=== PATIENT | male | born 1955 | race Caucasian/White ===

== ENCOUNTER 2016-06-11 11:14 | Inpatient (IN) | payer BC, SELFPAY ==
--- NOTE | ~2016-06-11 | IDS ---
Interim Discharge Summary [facility] [address] [place]. [address] NAME: CHELSEY GIORDANO : 59 STATUS : ADM IN [facility]#: [id number] AGE: 60 ADM/REG DATE : 06/11/16 MR#: [id number] REPORT SERV DATE: 06/14/16 DICTATED BY: DATE: REPORT STATUS : Draft TRANSCRIBED BY: MODL DATE: 06/14/16 ADMISSION DATE: 06/11/2016 DISCHARGE DATE: The patient is admitted to the [facility] Hospitalist [facility]. CONSULTANTS: Include Podiatry, Dr. Taylor. CURRENT DIAGNOSES: 1. Right great toe osteomyelitis and gangrene-status post phalanx debridement and resection on 06/11/[address] Taylor. Wound cultures positive for Pseudomonas, methicillin-sensitive staphylococcus aureus, Strep viridans. 2. Uncontrolled diabetes mellitus type 2-hemoglobin A1c 9.7. On oral agents at admission, now requiring insulin. 3. Severe peripheral neuropathy due to diabetes. 4. Peripheral arterial disease. 5. Hypertension-with blood pressure medication titrations underway. 6. Reported history of alcohol abuse-the patient denies. 7. Acute kidney injury, present at admission-resolved. IMAGING: Includes, 1. Plain films of bilateral feet showing bilateral foreign body suspected. No plain film evidence of osteomyelitis. Plantar heel spur on the right. 2. Postoperative films on 06/11/2016 of the right foot shows the patient is status post amputation of the first toe at the level of the mid phalanx. No postoperative changes identified. PERTINENT LABS: Sodium at admission 132, with a glucose of 424, creatinine has ranged from 1.18 to 0.7. Liver enzymes normal. Hemoglobin A1c 9.7. Initial white blood cell count 10.3, presently 9.5. Hemoglobin values between 10.4 and 11.3. Platelets normal. Blood cultures x2 negative. Wound culture positive for MSSA, fluoroquinolone susceptible Pseudomonas, and Strep viridans. PROCEDURES: Include a partial amputation and debridement of the distal and proximal right great great toe on 06/11/[address] Taylor. BRIEF HISTORY: For full details, please see the previously dictated history of present illness by Dr. Kush Giron. This is a 60-year-old white male with diabetes. He noticed redness, swelling, and nail odor for one day preceding admission as well as uncontrolled hyperglycemia. He presented to the emergency department for evaluation where x-ray of the foot revealed a possible foreign body in the distal phalanx of the right great toe. No pulses were palpable. He was admitted to the Hospitalist Service with evidence of right distal toe gangrene, odor, possible osteomyelitis on x-ray, with an emergent Podiatry consultation. Blood sugars were found to be in excess of 400 in the emergency department. HOSPITAL COURSE: The patient was admitted to [address] [place] [address] following urgent partial amputation and Interim Discharge Summary [address] [place]. [address] NAME: CHELSEY GIORDANO : 59 STATUS : ADM IN [facility]#: [id number] AGE: 60 ADM/REG DATE : 06/11/16 MR#: [id number] REPORT SERV DATE: 06/14/16 DICTATED BY: DATE: REPORT STATUS : Draft TRANSCRIBED BY: MODL DATE: 06/14/16 debridement of the right great toe for gangrene and possible osteomyelitis. Portions of the distal phalanx and proximal phalanx were resected and pathology results are currently pending in order for Dr. Taylor to determine plans for additional debridement versus delayed closure. Surgical cultures today are growing MSSA, Strep viridans, and fluoroquinolones susceptible Pseudomonas. Blood cultures have remained negative. The patient was initiated on vancomycin and meropenem on the 06/11/2016, and today, it will be changed to vancomycin and Levaquin given current susceptibilities. His hemoglobin A1c was found to be elevated at 9.7, and the patient has been found to be quite noncompliant with oral medications, diet, and outpatient blood glucose monitoring. He has been initiated on insulin here in order to control his blood sugars, with resultant blood sugars presently in the 120 to 190 range. This is on a combination of Levemir, scheduled NovoLog, and sliding scale NovoLog. 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 The inpatient informatics educator has been consulted to talk further with him. He has also been continued on his home oral agents which include metformin and glipizide. Dr. Taylor felt that the patient does have peripheral arterial disease, although he does have some detectable pulses and thus does not require urgent vascular evaluation this admission. He has peripheral neuropathy due to diabetes with some improvement in sensation as his blood sugars have become controlled. The patient also has a history of hypertension for which he is minimally compliant with medications. He was continued on HCTZ here and lisinopril increased to 40 mg p.o. daily. If this fails to improve, his systolic blood pressure control to goal less than 130 over the next 24 to 48 hours, he may necessitate initiation of an additional agent such as amlodipine. DISPOSITION: The patient remains hospitalized, awaiting surgical pathology reports and plans for additional debridement versus closure and then determination of discharge antibiotic regimen and discharge diabetes medication regimen. BRYANT/YASMIN Rogelio Merino M.D. / [id number] CC: Kathleen Romero DO
--- NOTE | ~2016-06-11 | HP ---
History And Physical [place] [address] [facility] [place]. [address] NAME: CHELSEY GIORDANO : 59 STATUS : ADM [facility] PAT#: [id number] AGE: 60 ADM/REG DATE : 06/11/16 MR#: [id number] REPORT SERV DATE: 06/11/16 DICTATED BY: CECELIA BURCH DATE: 06/11/16 REPORT STATUS : Draft TRANSCRIBED BY: MODL DATE: 06/11/16 DATE OF ADMISSION: 06/11/2016 REASON FOR ADMISSION: Gangrene, right great toe, with osteomyelitis of distal phalanx nail with cellulitis up to the MTJ. HISTORY: This is a 60-year-old white male who has diabetes. He has been trimmed his right toe nails began having redness, swelling, nail odor for one day duration. He try to get appointment with primary care doctor, Dr. Black from [place], who gave an appointment for 06/28/2016. He came to the emergency room for emergent treatment. X-ray of the foot shows osteomyelitis of distal phalanx on right side. No pulses are palpable. He also has a dorsal foot ulcer on the left side from a scratch. He does not take his blood sugar well at home and he is unsure about what his last hemoglobin A1c was by Dr. Black. PAST MEDICAL HISTORY: He has history of high blood pressure. He does not go to the doctors and has not been involved with much medical therapy in the past. The patient has never been hospitalized in the [facility] system and does not recall the last time he was hospitalized. He has had the only primary care for his diabetes in the past. MEDICATIONS: His home medications including the following: Aspirin in the form of Goody's powder one to two every 6 hours as needed for pain, gabapentin 300 mg p.o. four times a day, glipizide 10 mg p.o. twice a day, ibuprofen 600 mg twice a day p.r.n., lisinopril 20 mg every morning, lisinopril/HCTZ 20/25 one p.o. every morning, metformin 850 mg two with breakfast and one with supper, multivitamin one a day, Naprosyn 220 b.i.d., sodium chloride nasal spray, rsth-rwh-fhmpnki anti-diarrhea medicine, Mandi-D, Prevacid, vitamin B12, and qwak-vlb-kgfes bone vitamins. ALLERGIES: BEE AND WASP VENOM. FAMILY HISTORY: His father, Crow, of heart disease, cardiomyopathy, high blood pressure, and stroke. Mother still alive and well but weak, recently got a divorce and lives in a home behind the business. SOCIAL HISTORY: He has been three to four times, now lives with his mother behind [employer] on [address] in the [place] [facility] area. His primary care doctor is Dr. Black in [place] who moved to [place]. He does not smoke cigarette. He drives a most of the time. He is not presently , has been the last. He does not go to scientologist. REVIEW OF SYSTEMS: He has had other physicians including Dr. Black, Dr. Herrera Trevino, Dr. Hermosillo, Ana Carter, nurse practitioner, and JOSEPH Nash in the past. No chest pain, shortness of breath. No fevers, chills, night sweats, melena, hematemesis, nausea, vomiting, diarrhea. No unilateral weakness. No fits, seizures, or convulsions. Two days of odor from the right great toe with drainage and now ulceration on the left foot History And Physical [address] [address] NAME: CHELSEY GIORDANO : 59 STATUS : ADM [facility] PAT#: [id number] AGE: 60 ADM/REG DATE : 06/11/16 MR#: [id number] REPORT SERV DATE: 06/11/16 DICTATED BY: CECELIA BURCH DATE: 06/11/16 REPORT STATUS : Draft TRANSCRIBED BY: YASMIN DATE: 06/11/16 as well. Otherwise, remainder of the review of systems is negative. PHYSICAL EXAMINATION: GENERAL: White male, in no acute distress, balding head, ponytail. VITAL SIGNS: Blood pressure 140/70, heart rate 77, respiratory rate 18, afebrile. HEENT: EOMI. Sclerae clear. Conjunctivae pink. NECK: No bruit, without any JVD. CHEST: Clear to A and P. HEART: Regular S1, S2 without any murmur, gallop, or click. ABDOMEN: Slightly obese, nontender. Bowel sounds positive. No HSM. EXTREMITIES: Have trace edema. The legs are very hard, woody, and mummified. He does not have a good feeling in the toes of the feet. No pulses are palpable at the dorsalis pedis and posterior tibial. NEUROLOGIC: He withdraws to plantar stimulation. DTR was equal laterally, but none at the ankles. He has diminished sensation in the feet. 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 Coordination intact. There is no tremor. He is symmetric neurologically. SKIN: Ulcer left foot, 4 x 3 on the dorsum and at the lateral side and the right great toe is enlarged. Purple with eschar on the distal side with redness just above the MTJ on the right side as well. LYMPHATICS: There is no adenopathy palpable. Doppler attempted of the feet, unable to obtain pulses in the feet. LABORATORY: Foot x-ray suggest osteomyelitis of distal great toe. Sodium 132, potassium 4.6, creatinine 1.18, glucose was 424, calcium 9.1, potassium 4.6. His hemoglobin 11.3, hematocrit 34.4, white count 10.3, platelet 451,000. ASSESSMENT: 1. Right distal toe gangrene with odor and osteomyelitis by x-ray having been reviewed with Dr. Taylor. 2. Left foot ulcer, dorsum. We will dress and have Dr. Taylor order for that. 3. Peripheral vascular disease. He does have some flow to his feet Doppler according to Dr. Taylor. 4. Neuropathy. 5. Diabetes type 2. 6. Poor understanding of medical issues and history of noncompliance. 7. Hyperglycemia. Blood sugar is 424. 8. Chronic anemia, hemoglobin 11.3, hematocrit 34.4. PLAN: Podiatry consult. The patient will be going to the operating room this afternoon after discussing with Dr. Taylor. 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 History And Physical [address] [place]. [address] NAME: CHELSEY GIORDANO : 59 STATUS : ADM [facility] PAT#: [id number] AGE: 60 ADM/REG DATE : 06/11/16 MR#: [id number] REPORT SERV DATE: 06/11/16 DICTATED BY: CECELIA BURCH DATE: 06/11/16 REPORT STATUS : Draft TRANSCRIBED BY: YASMIN DATE: 06/11/16 DB/YASMIN Cecelia Burch M.D. / [id number] CC: Kathleen Nix D.P.M.
--- NOTE | ~2016-06-11 | OP ---
Record Of Operation [facility] [address] [place]. [address] NAME: CHELSEY GIORDANO : 59 STATUS : DIS IN PAT#: [id number] AGE: 61 ADM/REG DATE : 06/11/16 MR#: [id number] REPORT SERV DATE: 08/07/16 DICTATED BY: JAN ARIZA DATE: 08/07/16 REPORT STATUS : Draft TRANSCRIBED BY: MODL DATE: 08/07/16 DATE OF PROCEDURE: 06/18/2016 The patient's surgical procedure was performed at the bedside since the patient did not require a trip to the operating room to perform this procedure. PREOPERATIVE DIAGNOSES: Ulceration involving the left foot, ankle, lower leg, and knee . The lesions were approximately 1 cm in diameter at the level of the knee, at the ankle, lower leg, and foot. Aggregate size was approximately 40+ cm2 through the subcutaneous tissue. The lesion is composed of approximately five isolated lesions, one lesion the largest at the level of the sinus tarsi, ankle, and foot were approximately 12 cm long, and varied from 2 cm wide, upwards to 6 cm wide. The meaning four lesions, three distal and on proximal. All were in average size of approximately 2.5 cm. They were all very irregular. PROCEDURE: Debridement of ulceration left lower extremity, foot, ankle, leg, and knee, with the knee lesion less than 20 cm2, with the lower leg, ankle, and foot lesion greater than 40 cm2, all this is through the subcutaneous tissue. COMPLICATIONS: None. ESTIMATED BLOOD LOSS: Less than 5 mL. TOURNIQUET: No tourniquet was employed. ANESTHESIA: Anesthesia was not necessary, due to the dense neuropathy of this patient. DESCRIPTION OF PROCEDURE: On the morning of 06/18/2016, the left area was prepped and draped in the usual sterile manner, and using a combination of 15C, 15, 10, and 22 blades, sharp dissection was carried out through all the above-mentioned sites removing all the detritus material, until a bleeding granular bed was evidenced throughout the entire foot, ankle, leg, and knee region. The wound was not dropped lower then the subcutaneous tissue and all devitalized tissue was completely removed. The patient's leg was then dressed using santal ointment and 4 x4s, Kerlix fluffs, dry sterile dressing, with a compression dressing over this wound. The patient tolerated the procedures well and is to continue present treatment plan on b.i.d. basis upon discharge by home health care, orders have been. ANDERS/YASMIN Tameka SernaPJersey. / [id number] CC: Record Of [address] [address] NAME: CHELSEY GIORDANO : 59 STATUS : DIS IN PAT#: [id number] AGE: 61 ADM/REG DATE : 06/11/16 MR#: [id number] REPORT SERV DATE: 08/07/16 DICTATED BY: JAN ARIZA DATE: 08/07/16 REPORT STATUS : Draft TRANSCRIBED BY: YASMIN DATE: 08/07/16 Mauri Bonner M.D.
--- NOTE | ~2016-06-11 | DS ---
Discharge Summary [facility] [address] [place]. [address] NAME: CHELSEY GIORDANO : 59 STATUS : DIS IN PAT#: [id number] AGE: 60 ADM/REG DATE : 06/11/16 MR#: [id number] REPORT SERV DATE: 06/19/16 DICTATED BY: MAURI BONNER DATE: 06/18/16 REPORT STATUS : Draft TRANSCRIBED BY: MODL DATE: 06/18/16 ADMISSION DATE: 06/11/2016 DISCHARGE DATE: 06/18/2016 DISCHARGE DIAGNOSES: 1. Right great toe osteomyelitis and gangrene status post phalanx amputation and resection by Dr. Taylor on 06/11/2016. 2. Closure of the open wound on 06/16/[address] Taylor. Wound cultures positive for methicillin sensitive Staphylococcus aureus and strep viridans. 3. Uncontrolled type 2 diabetes mellitus with a hemoglobin A1c of 9 on oral agents at admission. 4. Severe peripheral neuropathy. 5. Peripheral arterial disease, only microvascular in nature. 6. Hypertension. 7. Reported history of alcohol abuse, but no evidence of delirium tremens. 8. Acute kidney injury, now resolved. IMAGING: Please refer to interim summary dictated by Dr. Merino. PERTINENT LABORATORIES: Please refer to interim summary dictated by Dr. Merino. INVASIVE PROCEDURES: Partial amputation and debridement of the distal and proximal right great toe with pathology report showing no evidence of proximal infection. BRIEF HISTORY OF PRESENT ILLNESS: The patient is a 60-year-old male with diabetes, noticed redness, swelling, and nail odor for one day preceding admission and hyperglycemia, so he was admitted. For detailed history and physical exam, please see note dictated by Dr. Kush Giron on 06/11/2016. HOSPITAL COURSE: After being admitted to the hospital, this patient was cared for by Dr. Rogelio Merino. Please refer to interim summary dictated by Dr. Merino on 06/14/2016. I took over this patient's care on 06/15/2016. This patient was doing well. We were awaiting his pathology report. Pathology report returned back as no proximal infection and removal of the osteomyelitic toe. Dr. Taylor took him to the operating room and closed his wound. Postoperatively, wound care was managed by Dr. Taylor. He did have lower extremity arterial Dopplers showing some hyperemic waveforms and diminished waveforms in the remaining toes, I doubt that they will be amenable to any intervention. Medical therapy is probably the best. He can follow up with Dr. Blayne Savage in the outpatient setting. At this time, because of the osteomyelitic foot, we decided that he would need 14 days of total therapy. I will switch him to oral Levaquin that he has been on and discontinue his Ancef at this time for seven more days. His blood pressure was managed and we have added Norvasc to that. We will switch back to his oral therapy of medications and defer use of insulin in the outpatient setting to his primary care physician if they so choose. He remained stable otherwise and he is being discharged in stable condition. DISCHARGE DISPOSITION: Home. Discharge Summary [address] [address] NAME: CHELSEY GIORDANO : 59 STATUS : DIS IN PAT#: [id number] AGE: 60 ADM/REG DATE : 06/11/16 MR#: [id number] REPORT SERV DATE: 06/19/16 DICTATED BY: MAURI BONNER DATE: 06/18/16 REPORT STATUS : Draft TRANSCRIBED BY: YASMIN DATE: 06/18/16 DISCHARGE ACTIVITY: Nonweightbearing on the right foot per Dr. Taylor using either wheelchair or a boot. DISCHARGE DIET: 1800-calorie [employer] diet. DISCHARGE MEDICATIONS: Amlodipine 5 mg one tablet daily. Iodosorb gel and fentanyl ointment per Wound Care orders by Dr. Taylor. Gabapentin 300 mg four times daily. Glucotrol 10 mg twice daily. Metformin 850 mg with supper and 1700 mg at breakfast. Lisinopril 20 mg once daily, and lisinopril and hydrochlorothiazide 20/25 mg one tablet every morning. Multivitamins one tablet daily. Levaquin 750 mg once daily. Powell nasal spray p.r.n. Antidiarrheal medications over the counter. OTC Mandi-D, Prevacid 30 mg once daily over- the-counter, vitamin B12, and bone vitamin. DISCHARGE FOLLOWUP: With Dr. Taylor, to be scheduled by him and with Dr. Bert Black in one week. More than 30 minutes spent planning this patient's discharge, reconciling medications, writing prescriptions, discussing hospital care, follow up with the patient, documenting this discharge. ADITYA/JASSL Mauri Bonner M.D. / [id number] CC: Kathleen Diane DO Dennis Bizzoco, D.P.M.
--- NOTE | ~2016-06-11 | OP ---
Record Of Operation [facility] [address] [place]. [address] NAME: CHELSEY GIORDANO : 59 STATUS : DIS IN PAT#: [id number] AGE: 61 ADM/REG DATE : 06/11/16 MR#: [id number] REPORT SERV DATE: 07/27/16 DICTATED BY: JAN ARIZA DATE: 07/23/16 REPORT STATUS : Draft TRANSCRIBED BY: MODL DATE: 07/23/16 DATE OF PROCEDURE: 06/11/2016 PREOPERATIVE DIAGNOSES: 1. Gangrene, right great toe and abscess right first ray. 2. Cellulitis right foot. 3. Stage 5 ulceration, right first ray. 4. Osteomyelitis right distal phalanx, proximal phalanx. POSTOPERATIVE DIAGNOSES: 1. Gangrene, right great toe and abscess right first ray. 2. Cellulitis right foot. 3. Stage 5 ulceration, right first ray. 4. Osteomyelitis right distal phalanx, proximal phalanx. PROCEDURE PERFORMED: 1. Disarticulation of right great toe, level of the right first IPJ. 2. Hemiphalangectomy proximal phalanx, right foot. 3. Decompression of abscess, right foot. SURGEON: Tameka SernaPSidM. ANESTHESIA: General with supplementation 0.5% plain Marcaine, 2% plain Xylocaine, ankle bracelet local block. COMPLICATIONS: None. DESCRIPTION OF PROCEDURE: The patient came to the operating room on the afternoon of 06/11/2016 in a satisfactory condition after having been seen earlier in the emergency room with gangrenous right great toe, fever and abscess formation. The right foot was prepped and draped in the usual sterile manner. The right foot was exsanguinated of blood and the ankle tourniquet (inaudible) . The patient had a sharp dissection of the gangrenous on gangrenous juncture at the level of the interphalangeal joint of the right great toe. Once this dissection was made without incident, the entire gangrenous toe and distal phalanx which was completely blocked, was sent in one piece. Extensor tendons and flexor tendons were identified, tagged with 0 silk tie. The fact that the purulence exhibits the planar aspect of the flexor canal and the extensor canal into the foot, blunt dissection into the foot, drained abscess, which accomplished and evaculated approximately 5 mL of purulence plantar and 2.5 mL purulence dorsal. The head of the proximal phalanx appeared to be darker and rather there were erosions at the periarticular surfaces mostly medially using a Josi oscillating saw. The head and neck was resected in a transverse fashion. These were also sent off to pathology. The patient then had a pulse lavage 3 L bag IV performed without incident. The patient had flush with normal saline through the bag a second time and then the wound was packed open using quarter-inch plain Nu Gauze, fluffs, Santyl ointment. Dry sterile dressing was applied without incident. The patient tolerated procedure well, went to the recovery room Record Of [address] [address] NAME: CHELSEY GIORDANO : 59 STATUS : DIS IN PAT#: [id number] AGE: 61 ADM/REG DATE : 06/11/16 MR#: [id number] REPORT SERV DATE: 07/27/16 DICTATED BY: JAN ARIZA DATE: 07/23/16 REPORT STATUS : Draft TRANSCRIBED BY: YASMIN DATE: 07/23/16 in satisfactory condition. ANDERS/YASMIN Rodney Serna.P.M. / [id number] CC: Mauri Bonner M.D.
[2016-06-11 09:05] LABS: BASOPHILS 0.2 %; BASOPHILS ABSOLUTE 0.02 10/3/uL (0.0-0.16); EOSINOPHILS 0.5 %; EOSINOPHILS ABSOLUTE 0.05 10/3/uL (0.0-0.53); HEMATOCRIT 34.4 % (40.0-51.0); HEMOGLOBIN 11.3 g/dL (13.6-17.8); IMMATURE GRANULOCYTES 0.3 %; IMMATURE GRANULOCYTES ABSOLUTE 0.03 10/3/uL (0.0-0.11); LYMPHOCYTES 15.9 %; LYMPHOCYTES ABSOLUTE 1.64 10/3/uL (0.67-4.30); MEAN CORPUS HGB CONC 32.8 g/dL (32.0-36.0); MEAN CORPUSCULAR HEMOGLOB 28.7 pg (26.0-34.0); MEAN CORPUSCULAR VOLUME 87.3 fL (80-100); MONOCYTES 7.8 %; NEUTROPHILS 75.3 %; NEUTROPHILS ABSOLUTE 7.75 10/3/uL (2.02-8.40); PLATELET COUNT 451 10/3/uL (150-400); RBC DISTRIBUTION WIDTH 13.7 % (12.0-16.0); RED CELL COUNT 3.94 10/6/uL (4.7-6.1); WHITE BLOOD CELLS 10.3 10/3/uL (4.5-10.5)
[2016-06-11 09:06] LABS: MANUAL DIFF NO %
[2016-06-11 09:18] LABS: BUN (BLOOD UREA NITROGEN) 13 MG/DL (6-23); CALCIUM, SERUM 9.1 MG/DL (8.5-10.4); CHLORIDE, SERUM 96 MMOL/L (96-112); CO2 (CARBON DIOXIDE) 25 MMOL/L (24-34); CREATININE 1.18 MG/DL (0.70-1.30); GFR AFRICAN AMERICAN 78 ML/MIN (>=60); GFR NON AFRICAN AMERICAN 68 ML/MIN (>=60); GLUCOSE, SERUM 424 MG/DL (60-99); POTASSIUM, SERUM 4.6 MMOL/L (3.5-5.3); SODIUM, SERUM 132 MMOL/L (135-148)
[~2016-06-11 11:14] MED LIST: GLUCOTRO10 PO; GLUCPH8 PO; NEUR300 PO
[2016-06-11] MEDS ORDERED: PRIN20 PO (11:31)
[2016-06-11] MEDS ORDERED: ZESTORETIC1 TA1 PO (11:32)
[2016-06-11] MEDS ORDERED: OTC ANTIDIARRHEAL PO (11:33)
[2016-06-11] MEDS ORDERED: GOODY'S EX-STR1 EAC1 PO (11:34)
[2016-06-11] MEDS ORDERED: ALEVE220 MG PO (11:34)
[2016-06-11] MEDS ORDERED: IBU600 PO (11:35)
[2016-06-11] MEDS ORDERED: FEXOFENADINE PO (11:35)
[2016-06-11] MEDS ORDERED: PSEUDOEPHEDRINE PO (11:35)
[2016-06-11] MEDS ORDERED: CYANO1000T PO (11:36)
[2016-06-11] MEDS ORDERED: MULTIVIT/MIN PO (11:36)
[2016-06-11] MEDS ORDERED: OCEAN NAS (11:36)
[2016-06-11] MEDS ORDERED: PREV15 PO (11:36)
[2016-06-11] MEDS ORDERED: [UNRECOGNIZED DRUG - OTHER] PO (11:37)
[2016-06-12 07:51] LABS: A/G RATIO 0.4 (0.7-1.9); ALBUMIN 2.4 G/DL (3.5-5.0); ALKALINE PHOSPHATASE 84 U/L (45-117); CALCIUM, SERUM 9.1 MG/DL (8.5-10.4); CHLORIDE, SERUM 100 MMOL/L (96-112); CO2 (CARBON DIOXIDE) 26 MMOL/L (24-34); GFR AFRICAN AMERICAN 114 ML/MIN (>=60); GFR NON AFRICAN AMERICAN 98 ML/MIN (>=60); GLOBULIN 5.5 G/DL (2.5-4.1); POTASSIUM, SERUM 4.6 MMOL/L (3.5-5.3); SGPT(ALT) 14 U/L (5-65); SODIUM, SERUM 135 MMOL/L (135-148); TOTAL BILIRUBIN 0.2 MG/DL (0-1.2); TOTAL PROTEIN 7.9 G/DL (6.0-8.5)
[2016-06-12 08:01] LABS: BUN (BLOOD UREA NITROGEN) 8 MG/DL (6-23); GLUCOSE, SERUM 199 MG/DL (60-99); SGOT(AST) 16 U/L (5-40)
[2016-06-13 05:20] LABS: BASOPHILS 0.2 %; BASOPHILS ABSOLUTE 0.02 10/3/uL (0.0-0.16); EOSINOPHILS 1.5 %; EOSINOPHILS ABSOLUTE 0.14 10/3/uL (0.0-0.53); HEMATOCRIT 32.6 % (40.0-51.0); HEMOGLOBIN 10.4 g/dL (13.6-17.8); IMMATURE GRANULOCYTES 0.5 %; IMMATURE GRANULOCYTES ABSOLUTE 0.05 10/3/uL (0.0-0.11); LYMPHOCYTES 20.1 %; LYMPHOCYTES ABSOLUTE 1.91 10/3/uL (0.67-4.30); MEAN CORPUS HGB CONC 31.9 g/dL (32.0-36.0); MEAN CORPUSCULAR HEMOGLOB 27.7 pg (26.0-34.0); MEAN CORPUSCULAR VOLUME 86.7 fL (80-100); MEAN PLATELET VOLUME 9.8 fL (9.2-13.0); MONOCYTES ABSOLUTE 1.14 10/3/uL (0.21-1.20); NEUTROPHILS 65.7 %; NEUTROPHILS ABSOLUTE 6.24 10/3/uL (2.02-8.40); PLATELET COUNT 384 10/3/uL (150-400); RBC DISTRIBUTION WIDTH 13.9 % (12.0-16.0); RED CELL COUNT 3.76 10/6/uL (4.7-6.1); WHITE BLOOD CELLS 9.5 10/3/uL (4.5-10.5)
[2016-06-13 05:21] LABS: MANUAL DIFF NO %
[2016-06-13 05:47] LABS: BUN (BLOOD UREA NITROGEN) 8 MG/DL (6-23); CALCIUM, SERUM 9.1 MG/DL (8.5-10.4); CHLORIDE, SERUM 99 MMOL/L (96-112); CO2 (CARBON DIOXIDE) 24 MMOL/L (24-34); CREATININE 0.69 MG/DL (0.70-1.30); GFR AFRICAN AMERICAN 121 ML/MIN (>=60); GFR NON AFRICAN AMERICAN 105 ML/MIN (>=60); POTASSIUM, SERUM 4.7 MMOL/L (3.5-5.3); SODIUM, SERUM 138 MMOL/L (135-148)
[2016-06-13 05:49] LABS: GLUCOSE, SERUM 250 MG/DL (60-99)
[2016-06-15 04:26] LABS: BASOPHILS 0.2 %; BASOPHILS ABSOLUTE 0.02 10/3/uL (0.0-0.16); EOSINOPHILS 0.9 %; EOSINOPHILS ABSOLUTE 0.08 10/3/uL (0.0-0.53); HEMATOCRIT 32.8 % (40.0-51.0); HEMOGLOBIN 10.6 g/dL (13.6-17.8); IMMATURE GRANULOCYTES 0.3 %; IMMATURE GRANULOCYTES ABSOLUTE 0.03 10/3/uL (0.0-0.11); LYMPHOCYTES ABSOLUTE 2.09 10/3/uL (0.67-4.30); MEAN CORPUS HGB CONC 32.3 g/dL (32.0-36.0); MEAN CORPUSCULAR VOLUME 86.5 fL (80-100); MEAN PLATELET VOLUME 8.9 fL (9.2-13.0); MONOCYTES 11.6 %; MONOCYTES ABSOLUTE 1.01 10/3/uL (0.21-1.20); NEUTROPHILS ABSOLUTE 5.48 10/3/uL (2.02-8.40); PLATELET COUNT 404 10/3/uL (150-400); RBC DISTRIBUTION WIDTH 13.5 % (12.0-16.0); RED CELL COUNT 3.79 10/6/uL (4.7-6.1); WHITE BLOOD CELLS 8.7 10/3/uL (4.5-10.5)
[2016-06-15 04:27] LABS: MANUAL DIFF NO %
[2016-06-15 04:48] LABS: BUN (BLOOD UREA NITROGEN) 8 MG/DL (6-23); CALCIUM, SERUM 9.1 MG/DL (8.5-10.4); CHLORIDE, SERUM 102 MMOL/L (96-112); CO2 (CARBON DIOXIDE) 28 MMOL/L (24-34); CREATININE 0.67 MG/DL (0.70-1.30); GFR AFRICAN AMERICAN 123 ML/MIN (>=60); GFR NON AFRICAN AMERICAN 106 ML/MIN (>=60); POTASSIUM, SERUM 3.8 MMOL/L (3.5-5.3); SODIUM, SERUM 138 MMOL/L (135-148)
[2016-06-15 04:58] LABS: GLUCOSE, SERUM 119 MG/DL (60-99)
[2016-06-16 06:32] LABS: BASOPHILS 0.2 %; BASOPHILS ABSOLUTE 0.02 10/3/uL (0.0-0.16); EOSINOPHILS ABSOLUTE 0.09 10/3/uL (0.0-0.53); HEMATOCRIT 31.3 % (40.0-51.0); HEMOGLOBIN 10.3 g/dL (13.6-17.8); IMMATURE GRANULOCYTES 0.2 %; IMMATURE GRANULOCYTES ABSOLUTE 0.02 10/3/uL (0.0-0.11); LYMPHOCYTES 24.5 %; LYMPHOCYTES ABSOLUTE 2.14 10/3/uL (0.67-4.30); MEAN CORPUS HGB CONC 32.9 g/dL (32.0-36.0); MEAN CORPUSCULAR HEMOGLOB 28.1 pg (26.0-34.0); MEAN CORPUSCULAR VOLUME 85.5 fL (80-100); MEAN PLATELET VOLUME 9.5 fL (9.2-13.0); MONOCYTES 12.1 %; MONOCYTES ABSOLUTE 1.06 10/3/uL (0.21-1.20); PLATELET COUNT 326 10/3/uL (150-400); RBC DISTRIBUTION WIDTH 13.8 % (12.0-16.0); RED CELL COUNT 3.66 10/6/uL (4.7-6.1); WHITE BLOOD CELLS 8.7 10/3/uL (4.5-10.5)
[2016-06-16 06:34] LABS: MANUAL DIFF NO %
[2016-06-16 06:42] LABS: ALBUMIN 2.1 G/DL (3.5-5.0); BUN (BLOOD UREA NITROGEN) 10 MG/DL (6-23); CALCIUM, SERUM 8.9 MG/DL (8.5-10.4); CHLORIDE, SERUM 98 MMOL/L (96-112); CO2 (CARBON DIOXIDE) 24 MMOL/L (24-34); CREATININE 0.72 MG/DL (0.70-1.30); GFR AFRICAN AMERICAN 119 ML/MIN (>=60); GFR NON AFRICAN AMERICAN 103 ML/MIN (>=60); PHOSPHORUS, SERUM 2.8 MG/DL (2.5-4.5); SODIUM, SERUM 135 MMOL/L (135-148)
[2016-06-16 06:44] LABS: GLUCOSE, SERUM 218 MG/DL (60-99); POTASSIUM, SERUM 4.6 MMOL/L (3.5-5.3)
[2016-06-17 06:21] LABS: BASOPHILS 0.1 %; BASOPHILS ABSOLUTE 0.01 10/3/uL (0.0-0.16); EOSINOPHILS 0.6 %; EOSINOPHILS ABSOLUTE 0.05 10/3/uL (0.0-0.53); HEMATOCRIT 32.8 % (40.0-51.0); HEMOGLOBIN 10.6 g/dL (13.6-17.8); IMMATURE GRANULOCYTES 0.2 %; IMMATURE GRANULOCYTES ABSOLUTE 0.02 10/3/uL (0.0-0.11); LYMPHOCYTES 18.2 %; MEAN CORPUS HGB CONC 32.3 g/dL (32.0-36.0); MEAN CORPUSCULAR HEMOGLOB 27.9 pg (26.0-34.0); MEAN CORPUSCULAR VOLUME 86.3 fL (80-100); MONOCYTES 9.9 %; MONOCYTES ABSOLUTE 0.87 10/3/uL (0.21-1.20); NEUTROPHILS ABSOLUTE 6.26 10/3/uL (2.02-8.40); PLATELET COUNT 362 10/3/uL (150-400); RBC DISTRIBUTION WIDTH 13.6 % (12.0-16.0); WHITE BLOOD CELLS 8.8 10/3/uL (4.5-10.5)
[2016-06-17 06:37] LABS: ALBUMIN 2.3 G/DL (3.5-5.0); BUN (BLOOD UREA NITROGEN) 11 MG/DL (6-23); CALCIUM, SERUM 9.4 MG/DL (8.5-10.4); CHLORIDE, SERUM 97 MMOL/L (96-112); CO2 (CARBON DIOXIDE) 25 MMOL/L (24-34); CREATININE 0.79 MG/DL (0.70-1.30); GFR AFRICAN AMERICAN 115 ML/MIN (>=60); GFR NON AFRICAN AMERICAN 99 ML/MIN (>=60); GLUCOSE, SERUM 230 MG/DL (60-99); MANUAL DIFF NO %; POTASSIUM, SERUM 4.1 MMOL/L (3.5-5.3); SODIUM, SERUM 133 MMOL/L (135-148)
[2016-06-18 05:36] LABS: BASOPHILS 0.2 %; BASOPHILS ABSOLUTE 0.02 10/3/uL (0.0-0.16); EOSINOPHILS 0.8 %; EOSINOPHILS ABSOLUTE 0.08 10/3/uL (0.0-0.53); HEMATOCRIT 32.7 % (40.0-51.0); HEMOGLOBIN 10.4 g/dL (13.6-17.8); IMMATURE GRANULOCYTES 0.4 %; IMMATURE GRANULOCYTES ABSOLUTE 0.04 10/3/uL (0.0-0.11); LYMPHOCYTES 24.8 %; LYMPHOCYTES ABSOLUTE 2.43 10/3/uL (0.67-4.30); MEAN CORPUS HGB CONC 31.8 g/dL (32.0-36.0); MEAN CORPUSCULAR HEMOGLOB 27.4 pg (26.0-34.0); MEAN CORPUSCULAR VOLUME 86.1 fL (80-100); MEAN PLATELET VOLUME 9.3 fL (9.2-13.0); MONOCYTES ABSOLUTE 1.57 10/3/uL (0.21-1.20); NEUTROPHILS 57.8 %; NEUTROPHILS ABSOLUTE 5.67 10/3/uL (2.02-8.40); PLATELET COUNT 358 10/3/uL (150-400); RBC DISTRIBUTION WIDTH 13.7 % (12.0-16.0); WHITE BLOOD CELLS 9.8 10/3/uL (4.5-10.5)
[2016-06-18 05:38] LABS: MANUAL DIFF NO %
[2016-06-18 06:00] LABS: ALBUMIN 2.3 G/DL (3.5-5.0); BUN (BLOOD UREA NITROGEN) 12 MG/DL (6-23); CALCIUM, SERUM 9.1 MG/DL (8.5-10.4); CHLORIDE, SERUM 96 MMOL/L (96-112); CO2 (CARBON DIOXIDE) 24 MMOL/L (24-34); CREATININE 0.84 MG/DL (0.70-1.30); GFR AFRICAN AMERICAN 112 ML/MIN (>=60); GFR NON AFRICAN AMERICAN 97 ML/MIN (>=60); PHOSPHORUS, SERUM 3.1 MG/DL (2.5-4.5); POTASSIUM, SERUM 3.8 MMOL/L (3.5-5.3); SODIUM, SERUM 134 MMOL/L (135-148)
[2016-06-18 06:04] LABS: GLUCOSE, SERUM 153 MG/DL (60-99)
[2016-06-18] MEDS ORDERED: LEVAQUIN750 MG PO (12:14)
[2016-06-18] MEDS ORDERED: OCEAN NAS (12:14)
[2016-06-18] MEDS ORDERED: PCET PO (12:15)
[2016-06-18] MEDS ORDERED: NORV5 PO (12:15)
== END 2016-06-18 14:37 | disposition home or self-care (01) | DRG 617 ==
LOC: ER 11:14 → CDU1 12:01 → SDC/OF 15:53 → PACU 16:50 → 4SO 18:11
PROVIDERS: Emergency Medicine; Hospitalist; Internal Medicine
PROC: 0Y6P0Z1 Detachment at Right 1st Toe, High, Open Approach (ICD-10-PCS; principal; 2016-06-11 13:45)
PROC: 0QBN0ZZ Excision of Right Metatarsal, Open Approach (ICD-10-PCS; 2016-06-16)
DX: E11.69 Type 2 diabetes mellitus with other specified complication (principal); E11.52 Type 2 diabetes mellitus with diabetic peripheral angiopathy with gangrene; N17.9 Acute kidney failure, unspecified; L03.115 Cellulitis of right lower limb; E11.65 Type 2 diabetes mellitus with hyperglycemia; M86.8X7 Other osteomyelitis, ankle and foot; E11.42 Type 2 diabetes mellitus with diabetic polyneuropathy; E11.621 Type 2 diabetes mellitus with foot ulcer; I10 Essential (primary) hypertension; Z79.84 Long term (current) use of oral hypoglycemic drugs; D64.9 Anemia, unspecified; B95.61 Methicillin susceptible Staphylococcus aureus infection as the cause of diseases classified elsewhere; B96.5 Pseudomonas (aeruginosa) (mallei) (pseudomallei) as the cause of diseases classified elsewhere; B95.4 Other streptococcus as the cause of diseases classified elsewhere; F17.200 Nicotine dependence, unspecified, uncomplicated; K21.9 Gastro-esophageal reflux disease without esophagitis; J44.9 Chronic obstructive pulmonary disease, unspecified
CPT/HCPCS: 73630-50; 73630-RT; 80048; 80053; 80069; 80202; 82962; 83036; 83735; 85025; 87040; 87070; 87075; 87077; 87186; 87205; 88304; 88311; 93005; 93923; 94640; 96374; 99284; A9270-GY; J0690; J0692; J2250; J2405; J3010; J3370

== ENCOUNTER 2016-06-21 17:54 | Inpatient (IN) | payer BC ==
--- NOTE | ~2016-06-21 | OP ---
Record Of Operation [facility] [address] [place]. [address] NAME: CHELSEY GIORDANO : 59 STATUS : DIS IN PAT#: [id number] AGE: 61 ADM/REG DATE : 06/21/16 MR#: [id number] REPORT SERV DATE: 08/07/16 DICTATED BY: JAN ARIZA DATE: 08/07/16 REPORT STATUS : Draft TRANSCRIBED BY: MODL DATE: 08/07/16 DATE OF PROCEDURE: 06/29/2016 PREOPERATIVE DIAGNOSIS: Negra drain defect, right first metatarsal phalangeal joint defect. POSTOPERATIVE DIAGNOSIS: [place] drain defect, right first metatarsal phalangeal joint defect. PROCEDURE PERFORMED: 1. Removal of Negra drain. 2. Simple closure of wound 2.6 cm to 7.5 cm. COMPLICATION: None. ESTIMATED BLOOD LOSS: Less than 5 mL. No tourniquet was employed. This patient did not have to go to the operatory, this is done at the bedside. No anesthesia was necessary due to the dense neuropathy. DESCRIPTION OF PROCEDURE: At bedside, the patient's [place] drain was removed without incident sent out for pathology. At this point, the area was dry. The wound was examined and the wound edges were everted using a 15 blade. Detritus material was removed from the wound bed. The area was flushed with copious amounts of normal saline and then using a horizontal mattress suture, 3-0 Prolene, two sutures were applied across the site with edges mildly coapted without strangulation or blanching of the tissue. This is done in a near-far, far-near type presentation, in which both the epidermis and the subcu structures were reapposed without incident. A Betadine dry sterile dressing was applied. The patient tolerated the procedure well. A Betadine dry sterile dressing, compression type was applied without incident. The patient was ready now for discharge. When hospitalist and ID organizational effectiveness consultant concur, continue the present treatment plan. ANDERS/YASMIN Werner Serna#: [id number] / [id number] CC: Kathleen Bass DO
--- NOTE | ~2016-06-21 | OP ---
Record Of Operation [facility] [address] [place]. [address] NAME: CHELSEY GIORDANO : 59 STATUS : DIS IN PAT#: [id number] AGE: 61 ADM/REG DATE : 06/21/16 MR#: [id number] REPORT SERV DATE: 07/27/16 DICTATED BY: JAN ARIZA DATE: 07/23/16 REPORT STATUS : Draft TRANSCRIBED BY: MODL DATE: 07/23/16 DATE OF PROCEDURE: 06/21/2016 PREOPERATIVE DIAGNOSES: 1. Resolved cellulitis, resolved abscess, resolved osteomyelitis right first toe, resolved gangrene right first toe. 2. Hematoma left first toe, nail plate and bed. POSTOPERATIVE DIAGNOSES: 1. Resolved cellulitis, resolved abscess, resolved osteomyelitis right first toe, resolved gangrene right first toe. 2. Hematoma left first toe, nail plate and bed. PROCEDURE PERFORMED: 1. Delayed extensive closure of the right first ray at the level of the proximal phalanx. 2. Drained hematoma subtotal left first toe. COMPLICATIONS: None. ESTIMATED BLOOD LOSS: TOURNIQUET TIME: No tourniquet was used. ANESTHESIA: General anesthesia with MAC local anesthesia, 0.5% plain Marcaine, 2% plain Xylocaine in ankle bracelet fashion, 20 mL total volume. DESCRIPTION OF PROCEDURE: The patient was brought to the operating room on the morning of 06/21/2016 in a satisfactory condition. General anesthesia was instituted. The right foot prepped and draped in the usual sterile manner. The right foot was flushed with normal saline using pulse lavage. It was determined at this point that some bone had to be resected, so that the wound could be closed. Three more sections approximately a dime width were removed. The proximal phalanx identified extensive long flexor. This area was then reduced end-to-end anastomosis was performed using 2-0 Vicryl simple interrupted suture. The patient then had a reapposition of the deep tissue using 3-0 Vicryl simple continuous suture. Subcutaneous tissue was closed using 4-0 Vicryl, simple continuous suture using alternating rows of 2-0 Prolene simple interrupted suture and 3-0 Prolene simple interrupted suture. The entire distal right great toe was reduced. There is pink margin in bases. Next, attention was paid to the left first toe. Prepped and draped with Hibiclens scrub followed by flush with normal saline using double-action bone forceps. The entire nail plate mid left first toe was reduced to the level of the matrix and the proximal nail fold. The patient had Betadine, Telfa, dry sterile compression dressing applied to this site. The patient tolerated procedures well and went to the recovery room in a satisfactory condition. DB/MODL [address] Of [address] [place]. [address] NAME: CHELSEY GIORDANO : 59 STATUS : DIS IN PAT#: [id number] AGE: 61 ADM/REG DATE : 06/21/16 MR#: [id number] REPORT SERV DATE: 07/27/16 DICTATED BY: JAN ARIZA DATE: 07/23/16 REPORT STATUS : Draft TRANSCRIBED BY: MODL DATE: 07/23/16 Tameka SernaPYolande / [id number] CC: Kathleen Bass DO
--- NOTE | ~2016-06-21 | IDS ---
Interim Discharge Summary [facility] [address] [place]. [address] NAME: CHELSEY GIORDANO : 59 STATUS : ADM IN PAT#: [id number] AGE: 60 ADM/REG DATE : 06/21/16 MR#: [id number] REPORT SERV DATE: 06/28/16 DICTATED BY: FRED ACEVEDO DATE: 06/28/16 REPORT STATUS : Draft TRANSCRIBED BY: MODL DATE: 06/28/16 ADMISSION DATE: 06/21/2016 DISCHARGE DATE: REASON FOR ADMISSION: Readmission for recurrent right foot cellulitis. HISTORY OF PRESENT ILLNESS: Please refer to Dr. Bonner's history and physical dated 06/22/2016, for complete details regarding the patient's admission. The patient was admitted to the Hospitalist service for recurrent right foot cellulitis status post toe amputation for osteo with clear margins on 06/11/2016. HOSPITAL COURSE: The patient had an uncomplicated hospital course. The patient was discharged by Dr. Bonner on oral antibiotics. The patient then came back a few days later with redness of his toe concerning for recurrent cellulitis. Dr. Taylor was reconsulted who had requested a whole body nuclear medicine scan along with an MRI. Dr. Dover was also consulted for recommendations regarding antibiotics. He had been placed on IV Ancef based on previous culture results. The MRI on the showed cellulitis around the amputation site and skin breakdown consistent with what is an evident ulceration of foot wound; however, there is no evidence of underlying osteomyelitis. A whole body nuclear medicine scan was also done the following day. There was delay in getting that test done due to radioactive material. The test showed moderate increased flow, blood pool, and delayed uptake at the surgical bed, compatible with recent surgery and granulation tissue formation. No intense increased activity seen to suggest abscess. There is focal relatively intense increased activity over the lateral proximal left foot concerning for infection. Dr. Taylor finally took the patient to the operating room on 06/26/2016, and performed a resection. He did have some bleeding on his drainage through his dressing. Dr. Taylor removed the drain on 06/28/2016, with plans to remove the suture on 06/29/2016. Dr. Dover has continuously followed along and has recommended 2 more weeks of IV Ancef along with oral Cipro starting on 06/26/2016. For his diabetes, A1c was obtained and was around 8.5%. The patient states that he controls his diabetes with diet along with oral medications. His CBGs have been around 200 to 300s, and I have been slowly increasing his Levemir. He is up to 30 units of Levemir at bedtime along with glipizide and metformin and his CBGs are in the 150s. 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 The pharmacognosist spent some time with him educating him on his diabetes. DISPOSITION: Final disposition per Dr. Castillo who will assume care of the patient on 06/28/2016 or 06/29/2016. However, the patient will need 2 weeks of IV antibiotics and we are awaiting a PT evaluation to see if we can get the patient to a rehab facility which would be in his best interest, otherwise he will need to go home with IV antibiotics and home health. Case management is aware and will continue to work. Hopefully, the patient will be discharged home soon either to home with IV antibiotics or to a rehab facility with IV antibiotics. INTERIM DIAGNOSES: Recurrent right foot cellulitis, status post resection 06/26/2016; Interim Discharge Summary [address] [address] NAME: CHELSEY GIORDANO : 59 STATUS : ADM IN [facility]#: [id number] AGE: 60 ADM/REG DATE : 06/21/16 MR#: [id number] REPORT SERV DATE: 06/28/16 DICTATED BY: FRED ACEVEDO DATE: 06/28/16 REPORT STATUS : Draft TRANSCRIBED BY: YASMIN DATE: 06/28/16 uncontrolled type 2 diabetes; hypertension; peripheral arterial disease; and tobacco abuse. PROCEDURES: Include consults from Dr. Taylor and Dr. Dover. MRI of the foot; whole body nuclear medicine scan; and surgical resection. ERIKA/YASMIN Fred Acevedo MD / [id number] CC: MD Bert Wyman DO
--- NOTE | ~2016-06-21 | HP ---
History And Physical [address] [place]. [address] NAME: CHELSEY GIORDANO : 59 STATUS : ADM IN [facility]#: [id number] AGE: 60 ADM/REG DATE : 06/21/16 MR#: [id number] REPORT SERV DATE: 06/22/16 DICTATED BY: MAURI BONNER DATE: 06/21/16 REPORT STATUS : Draft TRANSCRIBED BY: MODL DATE: 06/21/16 DATE OF ADMISSION: 06/21/2016 CHIEF COMPLAINT: Right foot redness. HISTORY OF PRESENT ILLNESS: The patient is a 60-year-old white male, who was discharged on 06/19/2016 from the hospital after a great toe osteomyelitis and gangrene post phalanx amputation and resection by Dr. Taylor on 06/11/2016. He was on IV antibiotics at that time. His pathology report and margins were clear of any infection, so Dr. Taylor did a wound closure on 06/16/2016. This patient remained in the hospital and we switched him to oral Levaquin, which the wound culture bacteria was sensitive to that included Acinetobacter, Pseudomonas, and Staphylococcus aureus that was methicillin sensitive. This patient went home and he started having more redness around his toe that was marked by home health and then today when home health went to see him again, he had further worsening of his redness, so he went to see Dr. Taylor. Dr. Taylor looked at his foot, opened his sutures up and thought that he had recurrent cellulitis and referred him to the emergency room, where he was referred to us for further treatment and evaluation. This patient denies any fever, chills, nausea, vomiting, chest pain, shortness of breath, or any other constitutional symptoms. He denies any lymphadenopathy in the groin. He has no feeling in his lower extremities due to diabetic neuropathy and denies much pain. REVIEW OF SYSTEMS: Ten-point review of systems is negative, except for what is noted in the HPI. PAST MEDICAL HISTORY: Significant and extensive for hypertension, type 2 diabetes mellitus with vascular complication, and neurological complication. He has mild chronic kidney disease. He has a history of alcohol abuse. PAST SURGICAL HISTORY: Significant for recent amputation of the right great toe. Multiple incision and drainage of bilateral feet due to wounds on his legs, followed by Dr. Bizzoco. ALLERGIES: WASP VENOM. HOME MEDICATIONS: Include metformin, gabapentin, glipizide, lisinopril, lisinopril and hydrochlorothiazide, ymlf-apo-hwueing Mandi, Prevacid, multivitamins, vitamin B12, ocean nasal spray, Levaquin, Norvasc, and oxycodone. SOCIAL HISTORY: He is . Lives close to family. He does not smoke cigarettes. 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 Denies use of alcohol or illicit substances. FAMILY HISTORY: Father of heart disease and cardiomyopathy, high blood pressure, and stroke. Mother still alive and well, but weak. PHYSICAL EXAMINATION: GENERAL: White male, lying in a gurney, appears to be in no obvious respiratory distress. SKIN: Warm and dry. Color normal. He is awake and alert. He is oriented. History And Physical [address] [address] NAME: CHELSEY GIORDANO : 59 STATUS : ADM IN [facility]#: [id number] AGE: 60 ADM/REG DATE : 06/21/16 MR#: [id number] REPORT SERV DATE: 06/22/16 DICTATED BY: MAURI BONNER DATE: 06/21/16 REPORT STATUS : Draft TRANSCRIBED BY: YASMIN DATE: 06/21/16 VITAL SIGNS: Stable. He is afebrile. HEENT: Normal. Oropharynx without lesion. Tongue protrusion in midline. Uvula midline. NECK: Supple. No jugular venous distention. No carotid bruits or thyromegaly is appreciated. No lymphadenopathy in the neck is palpable. HEART: Regular rate and rhythm. No murmurs, rubs, or gallops are heard. PMI is nondisplaced. LUNGS: Clear to auscultation both anteriorly and posteriorly without rales, rhonchi, wheezing, or consolidation. ABDOMEN: Soft, nontender, good bowel sounds. No rebound or guarding. No organomegaly. EXTREMITIES: Without cyanosis or clubbing. The left lower extremity bandages are in place. There is no evidence of any erythema in the left lower extremity. The right lower extremity toe amputation is noted. Sutures have been removed. There is macerated tissue at the end. There is no expressible material. There is significant erythema extending from the wound all the way up to the medial aspect of the foot and foot feels warm all the way to the ankle and lower extremity feels warm midway to the leg area. NEUROLOGICAL: Cranial nerves II through XII grossly intact. Motor development functioning appears to be normal. Strength is equal and symmetrical bilaterally. Typical sensory neuronal loss of diabetic neuropathy is noted in the lower extremities. LABORATORY DATA: All labs are pending at this time. IMPRESSION: 1. Recurrent cellulitis of the right foot. 2. Surgical wounds status post toe amputation for osteomyelitis with clear margins on pathology, done on 06/11/2016. 3. Type 2 diabetes mellitus with neuropathy, nephropathy, and vasculopathy. 4. Hypertension. 5. Peripheral arterial disease, mostly microvascular in nature. PLAN: The patient will be admitted. We will start patient on IV vancomycin and cefepime, and he had multiple drugs that could potentially develop resistance quickly. We will ask Dr. Taylor to see patient again in consultation. I will keep him on subcutaneous insulin. We will place him on low dose of IV fluids. We will keep him n.p.o. past midnight and feed him an 1800-calorie [place] [employer] diet. I have personally explained this to the patient and the family at the bedside, and I have personally reviewed all his home medications and addressed them as noted on the medication reconciliation summary. This patient remains a full code. ADITYA/YASMIN Mauri Bonner M.D. / [id number] History And Physical [address] [address] NAME: CHELSEY GIORDANO : 59 STATUS : ADM IN [facility]#: [id number] AGE: 60 ADM/REG DATE : 06/21/16 MR#: [id number] REPORT SERV DATE: 06/22/16 DICTATED BY: MAURI BONNER DATE: 06/21/16 REPORT STATUS : Draft TRANSCRIBED BY: YASMIN DATE: 06/21/16 CC: Kathleen Bass DO
--- NOTE | ~2016-06-21 | DS ---
Discharge Summary [address] [facility] [place]. [address] NAME: CHELSEY GIORDANO : 59 STATUS : DIS IN PAT#: [id number] AGE: 60 ADM/REG DATE : 06/21/16 MR#: [id number] REPORT SERV DATE: 07/01/16 DICTATED BY: KRISTI ESPINOZA DATE: 06/30/16 REPORT STATUS : Draft TRANSCRIBED BY: MODSarah DATE: 06/30/16 ADMISSION DATE: 06/21/2016 DISCHARGE DATE: 06/30/2016 DIAGNOSES: 1. Recurrent right foot cellulitis postop. 2. Type 2 diabetes, uncontrolled. 3. Hypertension. 4. Tobacco abuse. CONSULTANTS: 1. Podiatry, Dr. Taylor, and Infectious Disease, Dr. Justin Dover. HOSPITALISTS: Dr. Bonner and Dr. Acevedo and Dr. Espinoza. FOLLOWUP: The patient should follow up with his primary care physician in one to two weeks and to follow up with his denier control operator, Dr. Taylor, in one week. The patient is nonweightbearing of the right lower extremity as ordered. Also, the patient will continue with home health, with wound care, IV antibiotics, and PT. DISCHARGE MEDICATIONS: Amlodipine 10 mg p.o. daily, Ancef 2 g IV q.8 hours through 07/10/2016, Cipro 500 mg p.o. b.i.d. for 10 days, Neurontin 300 mg p.o. four times a day, Glucotrol 10 mg p.o. b.i.d., metformin 1700 mg p.o. daily with breakfast and 850 mg p.o. q. supper per home dose, lisinopril 20 mg p.o. q.a.m., Zestoretic 20/25 one tab p.o. q.a.m., multivitamin p.o. daily, Prevacid 15 mg p.o. daily, vitamin B12, Levemir 30 units subcutaneous q.h.s., Percocet 5/325 one tab p.o. q.6 hours p.r.n., Isordil 40 mg p.o. b.i.d., hold for systolic blood pressure less than 135. HOSPITAL COURSE: Please see H and P dictated by Dr. Bonner and interim summary from Dr. Acevedo for further details. This is a 60 years old male with a past medical history of uncontrolled type 2 diabetes and hypertension, recently discharged from the hospital by Dr. Bonner and Dr. Taylor, Podiatry, for a right great toe osteomyelitis with gangrene status post amputation with resection with reported clear margins with pathology report. The patient was discharged to home, however, returned to the ER for worsening redness at the postop site, the patient was asked to be readmitted for recurrent cellulitis. The patient was initially seen by Dr. Bonner and then later by Dr. Acevedo. He was re-initiated on IV antibiotics with Infectious Disease consultation. The patient was seen by Dr. Justin Dover. Also, the patient's denier control operator, Dr. Taylor was reconsulted and the patient was taken back to the OR on 06/26/2016. However, prior to OR, the patient had a repeat MRI of the right foot that revealed some cellulitis but no evidence of underlying osteomyelitis as well as body nuclear scan ordered by Podiatry. The patient was educated on importance of compliance with diabetic regimen. He did require insulin during this hospital stay and educated on importance of diabetes control. Also, the patient was educated on importance of tobacco abuse cessation. The patient was very adamant about not stopping his tobacco abuse, although educated by several physicians about importance of compliance due to cardiovascular risk and worsening wound healing risk. Also the patient refused inpatient rehab, although Discharge Summary [address] [place]. [address] NAME: CHELSEY GIORDANO : 59 STATUS : DIS IN PAT#: [id number] AGE: 60 ADM/REG DATE : 06/21/16 MR#: [id number] REPORT SERV DATE: 07/01/16 DICTATED BY: KRISTI ESPINOZA DATE: 06/30/16 REPORT STATUS : Draft TRANSCRIBED BY: MODSarah DATE: 06/30/16 highly recommended by his denier control operator as well as the hospitalist. However, the patient refused and stated he wanted to return home. The patient was discharged to home with home health wound care and to continue with IV antibiotics for home and approved for discharge by all specialists. Also, the patient is to have lab work per home health ordered by Dr. Dover, who will follow. This discharge required greater than 30 minutes. [facility]/MODL Kristi Espinoza M.D. / [id number] CC: Kathleen Bass DO Dennis Bizzoco, D.P.M. Mark Anderson, M.D.
--- NOTE | ~2016-06-21 | OP ---
Record Of Operation [facility] [address] [place]. [address] NAME: CHELSEY GIORDANO : 59 STATUS : DIS IN PAT#: [id number] AGE: 61 ADM/REG DATE : 06/21/16 MR#: [id number] REPORT SERV DATE: 07/26/16 DICTATED BY: JAN ARIZA DATE: 07/23/16 REPORT STATUS : Draft TRANSCRIBED BY: MODL DATE: 07/23/16 DATE OF PROCEDURE: 06/26/2016 PREOPERATIVE DIAGNOSES: Resolved osteomyelitis, gangrene, and cellulitis, right 1st toe, first metacarpophalangeal joint. POSTOPERATIVE DIAGNOSES: Resolved osteomyelitis, gangrene, and cellulitis, right 1st toe, first metacarpophalangeal joint. PROCEDURE PERFORMED: Resection of proximal phalanx, resection of 1st metatarsal head, resection of right 1st tibial and fibular sesamoids. COMPLICATIONS: None. ESTIMATED BLOOD LOSS: Less than 5 mL. TOURNIQUET: Not used. ANESTHESIA: General with supplementation of 0.5% plain Marcaine, 2% plain Xylocaine ankle bracelet fashion, 20 mL of total volume. DESCRIPTION OF PROCEDURE: The patient was brought to the operating room on 06/26/2016 in a satisfactory condition. General anesthesia was initiated. The right foot was prepped and draped in the usual sterile manner. The right foot was exsanguinated of blood. No tourniquet was employed. The patient had a sharp dissection technique along the devitalized tissue on the right first MPJ flap. Digitis and necrotic and necrosed tissue was removed under sharp dissection technique until the bleeding base could be identified. The patient then had identification of the base of proximal phalanx. It was sharply dissected free. It was sectioned into a diaphysis, a flare and a base . This entire lesion being removed, revealed disrupted 1st metatarsal head dorsally and medially. Using a Josi oscillating saw in an oblique fashion from proximal medial to distal lateral, the head, the neck, and a proximal margin were resected without incident, sent to pathology. The patient then had attention paid to the tibial and fibular sesamoids. They were dissected free and also sent out for pathology. This was all done using a combination of 10-blade, banana blade, 15C, 15 and 10 blades. The area was flushed with copious amounts of normal saline. Then, the wound reapposed at the level of the extensor longus and flexor longus of the right 1st toe. They have been previously tacked with 0 silk ties. The patient had the area flushed with copious amounts of normal saline, employing a pulse lavage vac. Once this was completely achieved, intraoperative cultures were obtained. The patient then had end-to-end anastomosis, long flexor and extensor over the cut end of the 1st metatarsal. The patient then had the capsule reapposed over the suture and then a drain was placed, Negra type to course from proximal medial to distal and then to distal lateral. Once this was in place, the subcutaneous tissue was closed using 2-0 Vicryl subcutaneous suture. The skin was closed through the combination of 3-0 Vicryl simple interrupted suture followed by alternating rows of 2-0 Vicryl modified horizontal mattress suture and 3-0 Prolene continuous interlocking suture. Betadine, Telfa, and dry sterile compression dressing was Record Of Operation [address] [address] NAME: CHELSEY GIORDANO : 59 STATUS : DIS IN PAT#: [id number] AGE: 61 ADM/REG DATE : 06/21/16 MR#: [id number] REPORT SERV DATE: 07/26/16 DICTATED BY: JAN ARIZA DATE: 07/23/16 REPORT STATUS : Draft TRANSCRIBED BY: MODL DATE: 07/23/16 applied to the right foot. The patient's toes remained pink and went to the recovery room in a satisfactory condition. DB/MODL Tameka SernaP.M. / [id number] CC: Kathleen Bass DO
--- NOTE | ~2016-06-21 | CN ---
Consultation Report [facility] [address] [place]. [address] NAME: CHELSEY GIORDANO : 59 STATUS : ADM IN [facility]#: [id number] AGE: 60 ADM/REG DATE : 06/21/16 MR#: [id number] REPORT SERV DATE: 06/22/16 DICTATED BY: MELANIE FOWLER DATE: 06/22/16 REPORT STATUS : Draft TRANSCRIBED BY: MODL DATE: 06/22/16 INFECTIOUS DISEASE CONSULT DATE OF CONSULTATION: REASON FOR EVALUATION: Evaluation and treatment of persistent foot infection. HISTORY OF PRESENT ILLNESS: The patient is a 60-year-old male. He has history of hypertension, diabetes mellitus, past alcohol abuse, which he has stopped. He came in on 06/11/2016 with a right great toe that was frankly gangrenous and had underlying osteomyelitis. A culture of it taken at the time of presentation grew methicillin-sensitive Staph aureus, a sensitive Pseudomonas, and Strep viridans. On 06/16/2016, he was taken to Surgery by Dr. Taylor with amputation of the toe as well as the proximal first phalanx. Cultures from that procedure grew an Acinetobacter and beta-hemolytic strep non-A, non-B, but very sparse amount for both. He, during that hospitalization, had been on antibiotics in the form of vancomycin and cefepime. He was changed to Levaquin and Ancef after the first cultures came back and then went home on 06/18/2016 on Levaquin alone. When he was followed up yesterday and some of the sutures were removed, he had evidence of infection that had returned and so was brought back to the hospital. A culture was done last evening and is negative thus far. X-ray shows no residual bone infection. At this point, the patient has had no fevers, chills, malaise, or flu-like symptoms. No trauma or unusual environmental exposures to the foot either before of after the last hospitalization. PAST MEDICAL HISTORY: Otherwise unremarkable. MEDICATIONS: Currently, he is on vancomycin and cefepime again. ALLERGIES: HE IS NOT ALLERGIC TO ANY ANTIBIOTICS. HE WORKS A [employer]. HE PREVIOUSLY HAD ALCOHOL ABUSE HISTORY, BUT HAS STOPPED THAT. HE DOES, HOWEVER, STILL SMOKE, SAYS THAT HE REALLY ENJOYS IT, AND AT THIS POINT, HAS NO INTENTIONS TO QUIT. HE IS . FAMILY HISTORY: Noncontributory. PHYSICAL EXAMINATION: GENERAL: Nontoxic adult male, in no acute distress. He is alert and oriented x3. VITAL SIGNS: His temperature here since coming back in has been normal, it is currently 98 with a pulse of 83, respirations 19, blood pressure 122/81, weight 94 kg. HEENT: Sclerae are clear. No oral or pharyngeal lesions. LUNGS: Clear. HEART: Regular rate and rhythm. ABDOMEN: Soft, nontender. Positive bowel sounds. EXTREMITIES: The site of the right great toe amputation is open with a small amount of necrotic debris and drainage. No foul odor. Mild redness extending back from the operative Consultation Report [address] [place]. [address] NAME: CHELSEY GIORDANO : 59 STATUS : ADM IN [facility]#: [id number] AGE: 60 ADM/REG DATE : 06/21/16 MR#: [id number] REPORT SERV DATE: 06/22/16 DICTATED BY: MELANIE FOWLER DATE: 06/22/16 REPORT STATUS : Draft TRANSCRIBED BY: YASMIN DATE: 06/22/16 site. No other acute-appearing foot lesions. LABORATORY DATA: White count 7.4 yesterday, 4.8 today; with hematocrit 30.3, and platelets 440. BUN and creatinine 15 and 0.7. IMPRESSION: Persistent infection. It may be that it was Staph aureus, which would not be well covered by the Levaquin which he went home on or there was some residual infection still left in that proximal phalanx. RECOMMENDATIONS: 1. We will cover for now with Ancef and Cipro. 2. For the procedures, we will defer to Dr. Taylor. 3. Finally, I will follow the patient with you. I appreciate very much your consulting on this patient. MAURICIO/YASMIN Melanie Fowler M.D. / [id number] CC: MD Bert Wyman DO Dennis Bizzoco, D.PYolande
[2016-06-21 17:45] LABS: BASOPHILS 0.3 %; BASOPHILS ABSOLUTE 0.02 10/3/uL (0.0-0.16); EOSINOPHILS 1.2 %; EOSINOPHILS ABSOLUTE 0.09 10/3/uL (0.0-0.53); HEMATOCRIT 29.6 % (40.0-51.0); IMMATURE GRANULOCYTES 0.7 %; IMMATURE GRANULOCYTES ABSOLUTE 0.05 10/3/uL (0.0-0.11); LYMPHOCYTES 25.8 %; LYMPHOCYTES ABSOLUTE 1.92 10/3/uL (0.67-4.30); MEAN CORPUSCULAR HEMOGLOB 27.9 pg (26.0-34.0); MEAN PLATELET VOLUME 8.7 fL (9.2-13.0); MONOCYTES 13.2 %; MONOCYTES ABSOLUTE 0.98 10/3/uL (0.21-1.20); NEUTROPHILS 58.8 %; NEUTROPHILS ABSOLUTE 4.38 10/3/uL (2.02-8.40); RBC DISTRIBUTION WIDTH 13.6 % (12.0-16.0); RED CELL COUNT 3.59 10/6/uL (4.7-6.1); WHITE BLOOD CELLS 7.4 10/3/uL (4.5-10.5)
[2016-06-21 17:46] LABS: MEAN CORPUS HGB CONC 33.8 g/dL (32.0-36.0); MEAN CORPUSCULAR VOLUME 82.5 fL (80-100); PLATELET COUNT 468 10/3/uL (150-400)
[2016-06-21 17:47] LABS: MANUAL DIFF NO %
[~2016-06-21 17:54] MED LIST changes: +ALEVE220 MG PO; +CYANO1000T PO; +FEXOFENADINE PO; +GOODY'S EX-STR1 EAC1 PO; +IBU600 PO; +LEVAQUIN750 MG PO; +MULTIVIT/MIN PO; +NORV5 PO; +OCEAN NAS; +OTC ANTIDIARRHEAL PO; +PCET PO; +PREV15 PO; +PRIN20 PO; +PSEUDOEPHEDRINE PO; +ZESTORETIC1 TA1 PO; +[UNRECOGNIZED DRUG - OTHER] PO
[2016-06-21 18:01] LABS: A/G RATIO 0.4 (0.7-1.9); ALBUMIN 2.4 G/DL (3.5-5.0); CALCIUM, SERUM 8.8 MG/DL (8.5-10.4); CHLORIDE, SERUM 93 MMOL/L (96-112); CO2 (CARBON DIOXIDE) 26 MMOL/L (24-34); GFR AFRICAN AMERICAN 85 ML/MIN (>=60); GFR NON AFRICAN AMERICAN 74 ML/MIN (>=60); GLOBULIN 5.6 G/DL (2.5-4.1); SGOT(AST) 14 U/L (5-40); SGPT(ALT) 22 U/L (5-65); SODIUM, SERUM 128 MMOL/L (135-148)
[2016-06-21 18:05] LABS: ALKALINE PHOSPHATASE 109 U/L (45-117); BUN (BLOOD UREA NITROGEN) 27 MG/DL (6-23); GLUCOSE, SERUM 204 MG/DL (60-99); POTASSIUM, SERUM 4.6 MMOL/L (3.5-5.3); TOTAL BILIRUBIN < 0.1 MG/DL (0-1.2)
[2016-06-21 22:01] LABS: SED RATE 107 MM/HR (0-15)
[2016-06-22 06:18] LABS: BASOPHILS 0.4 %; BASOPHILS ABSOLUTE 0.02 10/3/uL (0.0-0.16); EOSINOPHILS 2.1 %; HEMATOCRIT 30.3 % (40.0-51.0); IMMATURE GRANULOCYTES 0.8 %; IMMATURE GRANULOCYTES ABSOLUTE 0.04 10/3/uL (0.0-0.11); LYMPHOCYTES 27.5 %; LYMPHOCYTES ABSOLUTE 1.31 10/3/uL (0.67-4.30); MEAN CORPUSCULAR HEMOGLOB 27.5 pg (26.0-34.0); MEAN CORPUSCULAR VOLUME 83.5 fL (80-100); MEAN PLATELET VOLUME 8.6 fL (9.2-13.0); MONOCYTES 16.1 %; MONOCYTES ABSOLUTE 0.77 10/3/uL (0.21-1.20); NEUTROPHILS 53.1 %; NEUTROPHILS ABSOLUTE 2.53 10/3/uL (2.02-8.40); PLATELET COUNT 440 10/3/uL (150-400); RBC DISTRIBUTION WIDTH 13.4 % (12.0-16.0); RED CELL COUNT 3.63 10/6/uL (4.7-6.1); WHITE BLOOD CELLS 4.8 10/3/uL (4.5-10.5)
[2016-06-22 06:20] LABS: MANUAL DIFF NO %
[2016-06-22 06:37] LABS: ALBUMIN 2.4 G/DL (3.5-5.0); CALCIUM, SERUM 9.3 MG/DL (8.5-10.4); CHLORIDE, SERUM 100 MMOL/L (96-112); CO2 (CARBON DIOXIDE) 25 MMOL/L (24-34); GFR AFRICAN AMERICAN 121 ML/MIN (>=60); GFR NON AFRICAN AMERICAN 104 ML/MIN (>=60); PHOSPHORUS, SERUM 2.7 MG/DL (2.5-4.5); POTASSIUM, SERUM 4.4 MMOL/L (3.5-5.3)
[2016-06-22 06:39] LABS: BUN (BLOOD UREA NITROGEN) 15 MG/DL (6-23); GLUCOSE, SERUM 248 MG/DL (60-99); SODIUM, SERUM 135 MMOL/L (135-148)
[2016-06-22 12:46] LABS: INTERNATIONAL NORMAL RATI 1.1 UNITS (-); PARTIAL THROMBO TIME 38.8 SEC (22.5-37.2); PROTIME (NOT ORD) 14.1 SEC (12.0-14.5)
[2016-06-24 12:39] LABS: BASOPHILS 0.3 %; BASOPHILS ABSOLUTE 0.02 10/3/uL (0.0-0.16); EOSINOPHILS ABSOLUTE 0.14 10/3/uL (0.0-0.53); HEMOGLOBIN 10.5 g/dL (13.6-17.8); IMMATURE GRANULOCYTES 0.4 %; IMMATURE GRANULOCYTES ABSOLUTE 0.03 10/3/uL (0.0-0.11); LYMPHOCYTES 36.1 %; LYMPHOCYTES ABSOLUTE 2.48 10/3/uL (0.67-4.30); MEAN CORPUS HGB CONC 32.8 g/dL (32.0-36.0); MEAN CORPUSCULAR HEMOGLOB 27.6 pg (26.0-34.0); MEAN CORPUSCULAR VOLUME 84.2 fL (80-100); MEAN PLATELET VOLUME 8.8 fL (9.2-13.0); MONOCYTES 8.2 %; MONOCYTES ABSOLUTE 0.56 10/3/uL (0.21-1.20); NEUTROPHILS ABSOLUTE 3.64 10/3/uL (2.02-8.40); PLATELET COUNT 480 10/3/uL (150-400); RBC DISTRIBUTION WIDTH 13.7 % (12.0-16.0)
[2016-06-24 12:40] LABS: MANUAL DIFF NO %; WHITE BLOOD CELLS 6.9 10/3/uL (4.5-10.5)
[2016-06-24 12:56] LABS: A/G RATIO 0.4 (0.7-1.9); ALBUMIN 2.4 G/DL (3.5-5.0); ALKALINE PHOSPHATASE 104 U/L (45-117); CALCIUM, SERUM 8.8 MG/DL (8.5-10.4); CHLORIDE, SERUM 98 MMOL/L (96-112); CREATININE 0.82 MG/DL (0.70-1.30); GFR AFRICAN AMERICAN 113 ML/MIN (>=60); GFR NON AFRICAN AMERICAN 97 ML/MIN (>=60); GLOBULIN 5.6 G/DL (2.5-4.1); GLUCOSE, SERUM 243 MG/DL (60-99); PHOSPHORUS, SERUM 2.8 MG/DL (2.5-4.5); POTASSIUM, SERUM 4.1 MMOL/L (3.5-5.3); SGOT(AST) 19 U/L (5-40); SGPT(ALT) 20 U/L (5-65); SODIUM, SERUM 133 MMOL/L (135-148); TOTAL BILIRUBIN 0.1 MG/DL (0-1.2)
[2016-06-24 12:59] LABS: BUN (BLOOD UREA NITROGEN) 10 MG/DL (6-23); CO2 (CARBON DIOXIDE) 30 MMOL/L (24-34)
[2016-06-28 07:13] LABS: BASOPHILS 0.1 %; BASOPHILS ABSOLUTE 0.01 10/3/uL (0.0-0.16); EOSINOPHILS ABSOLUTE 0.17 10/3/uL (0.0-0.53); HEMOGLOBIN 9.4 g/dL (13.6-17.8); IMMATURE GRANULOCYTES 0.4 %; IMMATURE GRANULOCYTES ABSOLUTE 0.03 10/3/uL (0.0-0.11); LYMPHOCYTES 20.5 %; LYMPHOCYTES ABSOLUTE 1.72 10/3/uL (0.67-4.30); MEAN CORPUS HGB CONC 32.4 g/dL (32.0-36.0); MEAN CORPUSCULAR HEMOGLOB 27.1 pg (26.0-34.0); MEAN CORPUSCULAR VOLUME 83.6 fL (80-100); MEAN PLATELET VOLUME 8.8 fL (9.2-13.0); MONOCYTES ABSOLUTE 0.92 10/3/uL (0.21-1.20); NEUTROPHILS ABSOLUTE 5.53 10/3/uL (2.02-8.40); PLATELET COUNT 395 10/3/uL (150-400); RBC DISTRIBUTION WIDTH 13.8 % (12.0-16.0); RED CELL COUNT 3.47 10/6/uL (4.7-6.1); WHITE BLOOD CELLS 8.4 10/3/uL (4.5-10.5)
[2016-06-28 07:15] LABS: MANUAL DIFF NO %
[2016-06-28 07:25] LABS: BUN (BLOOD UREA NITROGEN) 11 MG/DL (6-23); CHLORIDE, SERUM 96 MMOL/L (96-112); CO2 (CARBON DIOXIDE) 29 MMOL/L (24-34); GLUCOSE, SERUM 110 MG/DL (60-99); POTASSIUM, SERUM 3.7 MMOL/L (3.5-5.3); SODIUM, SERUM 133 MMOL/L (135-148)
[2016-06-28 07:28] LABS: CREATININE 0.89 MG/DL (0.70-1.30); GFR AFRICAN AMERICAN 109 ML/MIN (>=60); GFR NON AFRICAN AMERICAN 94 ML/MIN (>=60); PHOSPHORUS, SERUM 2.8 MG/DL (2.5-4.5)
[2016-06-29 06:00] LABS: BASOPHILS 0.1 %; BASOPHILS ABSOLUTE 0.01 10/3/uL (0.0-0.16); EOSINOPHILS 2.6 %; EOSINOPHILS ABSOLUTE 0.19 10/3/uL (0.0-0.53); HEMATOCRIT 29.6 % (40.0-51.0); HEMOGLOBIN 9.5 g/dL (13.6-17.8); IMMATURE GRANULOCYTES 0.3 %; IMMATURE GRANULOCYTES ABSOLUTE 0.02 10/3/uL (0.0-0.11); LYMPHOCYTES 27.5 %; LYMPHOCYTES ABSOLUTE 1.99 10/3/uL (0.67-4.30); MEAN CORPUS HGB CONC 32.1 g/dL (32.0-36.0); MEAN CORPUSCULAR VOLUME 84.1 fL (80-100); MEAN PLATELET VOLUME 9.3 fL (9.2-13.0); MONOCYTES 12.4 %; NEUTROPHILS 57.1 %; NEUTROPHILS ABSOLUTE 4.13 10/3/uL (2.02-8.40); PLATELET COUNT 386 10/3/uL (150-400); RBC DISTRIBUTION WIDTH 13.8 % (12.0-16.0); RED CELL COUNT 3.52 10/6/uL (4.7-6.1); WHITE BLOOD CELLS 7.2 10/3/uL (4.5-10.5)
[2016-06-29 06:02] LABS: MANUAL DIFF NO %
[2016-06-29 06:15] LABS: BUN (BLOOD UREA NITROGEN) 11 MG/DL (6-23); CALCIUM, SERUM 9.3 MG/DL (8.5-10.4); CHLORIDE, SERUM 97 MMOL/L (96-112); CO2 (CARBON DIOXIDE) 27 MMOL/L (24-34); CREATININE 0.89 MG/DL (0.70-1.30); GFR AFRICAN AMERICAN 109 ML/MIN (>=60); GFR NON AFRICAN AMERICAN 94 ML/MIN (>=60); GLUCOSE, SERUM 126 MG/DL (60-99); PHOSPHORUS, SERUM 2.7 MG/DL (2.5-4.5); SODIUM, SERUM 132 MMOL/L (135-148)
[2016-06-30 05:14] LABS: BASOPHILS 0.3 %; BASOPHILS ABSOLUTE 0.02 10/3/uL (0.0-0.16); EOSINOPHILS 3.4 %; EOSINOPHILS ABSOLUTE 0.24 10/3/uL (0.0-0.53); HEMATOCRIT 30.7 % (40.0-51.0); HEMOGLOBIN 9.8 g/dL (13.6-17.8); IMMATURE GRANULOCYTES 0.4 %; IMMATURE GRANULOCYTES ABSOLUTE 0.03 10/3/uL (0.0-0.11); LYMPHOCYTES 28.1 %; LYMPHOCYTES ABSOLUTE 1.97 10/3/uL (0.67-4.30); MEAN CORPUS HGB CONC 31.9 g/dL (32.0-36.0); MEAN CORPUSCULAR HEMOGLOB 26.9 pg (26.0-34.0); MEAN CORPUSCULAR VOLUME 84.3 fL (80-100); MEAN PLATELET VOLUME 8.9 fL (9.2-13.0); MONOCYTES 13.6 %; MONOCYTES ABSOLUTE 0.95 10/3/uL (0.21-1.20); NEUTROPHILS 54.2 %; PLATELET COUNT 368 10/3/uL (150-400); RBC DISTRIBUTION WIDTH 13.7 % (12.0-16.0); RED CELL COUNT 3.64 10/6/uL (4.7-6.1)
[2016-06-30 05:17] LABS: MANUAL DIFF NO %
[2016-06-30 05:28] LABS: BUN (BLOOD UREA NITROGEN) 9 MG/DL (6-23); CALCIUM, SERUM 9.3 MG/DL (8.5-10.4); CHLORIDE, SERUM 101 MMOL/L (96-112); CREATININE 0.78 MG/DL (0.70-1.30); GFR AFRICAN AMERICAN 115 ML/MIN (>=60); GFR NON AFRICAN AMERICAN 100 ML/MIN (>=60); GLUCOSE, SERUM 126 MG/DL (60-99); PHOSPHORUS, SERUM 3.1 MG/DL (2.5-4.5); SODIUM, SERUM 133 MMOL/L (135-148)
[2016-06-30 05:36] LABS: CO2 (CARBON DIOXIDE) 22 MMOL/L (24-34); POTASSIUM, SERUM 4.3 MMOL/L (3.5-5.3)
[2016-06-30] MEDS ORDERED: CIP5 PO (13:19)
[2016-06-30] MEDS ORDERED: NORV10 PO (13:20)
[2016-06-30] MEDS ORDERED: ISORDTITRA PO (13:20)
[2016-06-30] MEDS ORDERED: LEVEMFLXPN SC (13:21)
== END 2016-06-30 18:45 | disposition home health service (06) | DRG 629 ==
LOC: ER 17:54 → 5SO 19:18
PROVIDERS: Internal Medicine; Physician Assistant
PROC: 0QBN0ZZ Excision of Right Metatarsal, Open Approach (ICD-10-PCS; 2016-06-26)
PROC: 0QTN0ZZ Resection of Right Metatarsal, Open Approach (ICD-10-PCS; principal; 2016-06-26 08:45)
PROC: 02HV33Z Insertion of Infusion Device into Superior Vena Cava, Percutaneous Approach (ICD-10-PCS; 2016-06-30)
PROC: 4A02X4A Measurement of Cardiac Electrical Activity, Guidance, External Approach (ICD-10-PCS; 2016-06-30)
DX: E11.628 Type 2 diabetes mellitus with other skin complications (principal); E87.1 Hypo-osmolality and hyponatremia; L03.031 Cellulitis of right toe; M25.871 Other specified joint disorders, right ankle and foot; E11.22 Type 2 diabetes mellitus with diabetic chronic kidney disease; E11.51 Type 2 diabetes mellitus with diabetic peripheral angiopathy without gangrene; E11.42 Type 2 diabetes mellitus with diabetic polyneuropathy; N18.9 Chronic kidney disease, unspecified; E11.65 Type 2 diabetes mellitus with hyperglycemia; F17.210 Nicotine dependence, cigarettes, uncomplicated; I12.9 Hypertensive chronic kidney disease with stage 1 through stage 4 chronic kidney disease, or unspecified chronic kidney disease; Z79.84 Long term (current) use of oral hypoglycemic drugs; Z79.899 Other long term (current) drug therapy; Z82.49 Family history of ischemic heart disease and other diseases of the circulatory system; Z89.421 Acquired absence of other right toe(s); Z91.030 Bee allergy status
CPT/HCPCS: 36569; 73630-LT; 73630-RT; 73718-RT; 78806; 80048; 80053; 80069; 82962; 83036; 83735; 84100; 85025; 85610; 85652; 85730; 86140; 87015; 87040; 87070; 87075; 87102; 87116; 87205; 88304; 88311; 97161-GP; 99284; A9270-GY; A9569; C1751; J0360; J0690; J0692; J1170; J1956; J2250; J2405; J3010; J3370; J3475